=== PATIENT | female | born 1950 ===

== ENCOUNTER 2020-12-18 05:05 | Day surgery (SDC) | payer OTHER ==
[2020-12-17 08:14] VITALS: BMI 21.2
[2020-12-18 11:13] VITALS: TEMP 97.6
[2020-12-18 12:17] VITALS: BP 134/66; PULSE 65
== END 2020-12-18 12:24 | disposition home or self-care (01) ==
LOC: JASU-ENDO 05:05
PROVIDERS: ATTEND Internal Medicine Gastroenterology
PROC: 0DBN8ZX Excision of Sigmoid Colon, Via Natural or Artificial Opening Endoscopic, Diagnostic (ICD-10-PCS; principal; 2020-12-18 10:15)
DX: Z12.11 Encounter for screening for malignant neoplasm of colon (principal); K52.9 Noninfective gastroenteritis and colitis, unspecified
CPT/HCPCS: 88305-TC